=== PATIENT | male | born 1945 | race Caucasian/White ===

== ENCOUNTER 2016-10-22 06:31 | Emergency (ER) | payer MEDICARE, BC ==
--- NOTE | 2016-10-22 07:21 | EDM.PDOC ---
ED HPI GENERAL MEDICAL PROBLEM - General Chief Complaint: General Stated Complaint: MEDICAL [facility] Time Seen by Provider: 10/22/16 06:40 Source of Information: Reports: Patient, Family History Limitations: Reports: No Limitations - History of Present Illness INITIAL COMMENTS - FREE TEXT/NARRATIVE: pt arrived sob and wanting to go on hospice. He has the known diagnosis of lymphoma. he definitely does not want to be admitted to the hosp. He also has the diagnosis of bladder ca . 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 Onset: Gradual Duration: Week(s): Location: Reports: Chest, Other (pt has mmarkd swelling in both legs. ) Associated Symptoms: Reports: Cough, Shortness of Breath, Other (marked ankle swelling. ) - Related Data Allergies Allergy/AdvReac Type Severity Reaction Status Date / Time No Known Allergies Allergy Verified 11/19/15 10:13 Home Meds: Home Meds Acetaminophen [Tylenol] 650 mg PO ASDIRECTED 04/16/15 [History] Magnesium Oxide [Magnesium] 400 mg PO BID #14 tablet 11/19/15 [Rx] Dexamethasone 4 mg PO BID 10/22/16 [History] Hydrocodone/Acetaminophen [Hydrocodon-Acetaminophen 5-325] 1 each PO Q4HR PRN [History] Morphine Sulfate [Morphine Sulfate ER] 30 mg PO BID 10/22/16 [History] Past Medical History HEENT History: Reports: Impaired Vision Respiratory History: Reports: Pneumonia, Recurrent Other Genitourinary History: Bladder ca Musculoskeletal History: Reports: Fracture, Other (See Below) Other Musculoskeletal History: history left shoulder blade fracture many years ago Neurological History: Reports: Concussion Hematologic History: Reports: Blood Transfusion(s), Other (See Below) Other Hematologic History: bone marrow transplant Immunologic History: Reports: Immunosuppression, Other (See Below) Other Immunologic History: currently on chemo Oncologic (Cancer) History: Reports: Bladder, Lymphoma, Other (See Below) Other Oncologic History: Non Hodgkins lymphona x2 - Infectious Disease History Infectious Disease History: Reports: Chicken Pox, Measles, Mumps - Past Surgical History HEENT Surgical History: Reports: Oral Surgery Other Cardiovascular Surgeries/Procedures: 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 GI Surgical History: Reports: Colonoscopy Oncologic Surgical History: Reports: Bone Marrow Transplant, Lumpectomy Social & Family History - Family History Family Medical History: Noncontributory - Tobacco Use Smoking Status *Q: Current Every Day Smoker Years of Tobacco use: 50 Packs/Tins Daily: 1 Used Tobacco, but Quit: Yes Month Tobacco Last Used: 09/2015 - Caffeine Use Caffeine Use: Reports: None - Alcohol Use Days Per Week of Alcohol Use: 1 Number of Drinks Per Day: 1 Total Drinks Per Week: 1 - Recreational Drug Use Recreational Drug Use: No ED ROS GENERAL - Review of Systems Review Of Systems: See Below Constitutional: Reports: Weakness HEENT: Reports: No Symptoms Respiratory: Reports: Shortness of Breath, Cough, Other ( swelling in both ankles. ) Cardiovascular: Reports: No Symptoms Endocrine: Reports: No Symptoms GI/Abdominal: Reports: No Symptoms : Reports: No Symptoms Musculoskeletal: Reports: No Symptoms Skin: Reports: No Symptoms ED EXAM, GENERAL - Physical Exam Exam: See Below Free Text/Narrative:: pt arrived with marked increase in sob.He has ankle swelling which has increased . He does seem quite s;leepy. His 02 sats were in the 70s on arrival. Exam Limited By: Other (pt is not a good historian.) General Appearance: Alert, Anxious, Moderate Distress Ears: Normal TMs Nose: Normal Inspection Throat/Mouth: Normal Inspection Head: Atraumatic Neck: Normal Inspection Respiratory/Chest: Decreased Breath Sounds, Crackles, Wheezing, Other (pt had 02 sats in the 70s. ) Cardiovascular: Regular Rate, Rhythm GI/Abdominal: Soft, Non-Tender (Male) Exam: Penile Lesions Rectal (Males) Exam: Deferred Back Exam: Normal Inspection Extremities: Other (pt has pluse 3 pitting edema. ) Neurological: Alert, Oriented, Other ( he does fall asleep easily. ) Psychiatric: Depressed Mood Course - Vital Signs Last Recorded V/S: Last Vital Signs Temp 36.2 C 10/22/16 06:36 Pulse 92 10/22/16 06:36 Resp 20 10/22/16 06:36 BP 124/60 10/22/16 08:14 Pulse Ox 78 L 10/22/16 06:36 - Orders/Labs/Meds Orders: Active Orders 24 hr Category Date Time Status RT Aerosol Therapy [RC] ASDIRECTED Care 10/22/16 07:59 Active Chest 1V Frontal [CR] Stat Exams 10/22/16 07:16 Taken Labs: Laboratory Tests 10/22/16 10/22/16 10/22/16 Range/Units 07:25 07:25 07:25 WBC 11.8 H (4.5-11.0) K/uL RBC 3.87 L (4.30-5.90) M/uL Hgb 11.3 L (12.0-15.0) g/dL Hct 32.8 L (40.0-54.0) % MCV 85 (80-98) fL MCH 29 (27-31) pg MCHC 35 (32-36) % Plt Count 97 L (150-400) K/uL Neut % (Auto) 91 H (36-66) % Lymph % (Auto) 4 L (24-44) % Boundary % (Auto) 6 (2-6) % Eos % (Auto) 0 L (2-4) % Baso % (Auto) 0 (0-1) % Puncture Site Rt radial ABG pH 7.300 L (7.350-7.450) ABG pCO2 34.0 L (35.0-42.0) mmHg ABG pO2 67.3 L (75.0-100.0) mmHg ABG HCO3 16.2 L (22.0-26.0) mmol/L ABG Total CO2 15.2 L (23.0-27.0) mmol/L ABG O2 Saturation 88.8 L (95.0-98.0) % ABG O2 Content 13.8 L (15.0-23.0) %vol ABG Base Excess -8.9 mm/L ABG Hemoglobin 11.2 L (13.5-18.0) g/dL ABG Oxyhemoglobin 86.8 % ABG Carboxyhemoglobin 1.3 (0.0-1.6) % ABG Methemoglobin 1.0 % Mateus Test Passed O2 Delivery Device Nasal cannula Oxygen Flow Rate 2 L Sodium 136 L (140-148) mmol/L Potassium 6.5 H* (3.6-5.2) mmol/L Chloride 101 (100-108) mmol/L Carbon Dioxide 16 L (21-32) mmol/L Anion Gap 25.5 H (5.0-14.0) mmol/L BUN 154 H* D (7-18) mg/dL Creatinine 13.0 H* D (0.8-1.3) mg/dL Est Cr Clr Drug Dosing 4.94 mL/min Estimated GFR (MDRD) 4 L (>60) Glucose 102 (74-106) mg/dL Calcium 8.5 (8.5-10.1) mg/dL Total Bilirubin 0.7 D (0.2-1.0) mg/dL AST 64 H D (15-37) U/L ALT 34 D (12-78) U/L Alkaline Phosphatase 241 H D (46-116) U/L NT-Pro-B Natriuret Pep (5-125) pg/mL Total Protein 6.0 L (6.4-8.2) g/dL Albumin 2.6 L (3.4-5.0) g/dL Globulin 3.4 (2.3-3.5) g/dL Albumin/Globulin Ratio 0.8 L (1.2-2.2) Urine Color Urine Appearance Urine pH (4.5-8.0) Ur Specific Inez (1.008-1.030) Urine Protein (NEGATIVE) mg/dL Urine Glucose (UA) (NEGATIVE) mg/dL Urine Ketones (NEGATIVE) mg/dL Urine Occult Blood (NEGATIVE) Urine Nitrite (NEGAITVE) Urine Bilirubin (NEGATIVE) Urine Urobilinogen (NORMAL) mg/dL Ur Leukocyte Esterase (NEGATIVE) Urine RBC (0-5) Urine WBC (0-5) Ur Epithelial Cells Amorphous Sediment Urine Bacteria Urine Mucus 10/22/16 10/22/16 Range/Units 07:26 09:22 WBC (4.5-11.0) K/uL RBC (4.30-5.90) M/uL Hgb (12.0-15.0) g/dL Hct (40.0-54.0) % MCV (80-98) fL MCH (27-31) pg MCHC (32-36) % Plt Count (150-400) K/uL Neut % (Auto) (36-66) % Lymph % (Auto) (24-44) % Boundary % (Auto) (2-6) % Eos % (Auto) (2-4) % Baso % (Auto) (0-1) % Puncture Site ABG pH (7.350-7.450) ABG pCO2 (35.0-42.0) mmHg ABG pO2 (75.0-100.0) mmHg ABG HCO3 (22.0-26.0) mmol/L ABG Total CO2 (23.0-27.0) mmol/L ABG O2 Saturation (95.0-98.0) % ABG O2 Content (15.0-23.0) %vol ABG Base Excess mm/L ABG Hemoglobin (13.5-18.0) g/dL ABG Oxyhemoglobin % ABG Carboxyhemoglobin (0.0-1.6) % ABG Methemoglobin % Mateus Test O2 Delivery Device Oxygen Flow Rate L Sodium (140-148) mmol/L Potassium (3.6-5.2) mmol/L Chloride (100-108) mmol/L Carbon Dioxide (21-32) mmol/L Anion Gap (5.0-14.0) mmol/L BUN (7-18) mg/dL Creatinine (0.8-1.3) mg/dL Est Cr Clr Drug Dosing mL/min Estimated GFR (MDRD) (>60) Glucose (74-106) mg/dL Calcium (8.5-10.1) mg/dL Total Bilirubin (0.2-1.0) mg/dL AST (15-37) U/L ALT (12-78) U/L Alkaline Phosphatase (46-116) U/L NT-Pro-B Natriuret Pep 1080 H (5-125) pg/mL Total Protein (6.4-8.2) g/dL Albumin (3.4-5.0) g/dL Globulin (2.3-3.5) g/dL Albumin/Globulin Ratio (1.2-2.2) Urine Color Yellow Urine Appearance Cloudy Urine pH 5.0 (4.5-8.0) Ur Specific Inez 1.020 (1.008-1.030) Urine Protein Trace (NEGATIVE) mg/dL Urine Glucose (UA) Normal (NEGATIVE) mg/dL Urine Ketones Negative (NEGATIVE) mg/dL Urine Occult Blood Large (NEGATIVE) Urine Nitrite Negative (NEGAITVE) Urine Bilirubin Negative (NEGATIVE) Urine Urobilinogen Normal (NORMAL) mg/dL Ur Leukocyte Esterase Moderate (NEGATIVE) Urine RBC 20-30 H (0-5) Urine WBC 10-20 H (0-5) Ur Epithelial Cells Not seen Amorphous Sediment Not seen Urine Bacteria Not seen Urine Mucus Not seen Meds: Medications Discontinued Medications Generic Name Dose Route Start Last Admin Trade Name Nitesh PRN Reason Stop Dose Admin Albuterol 2.5 mg 10/22/16 07:59 10/22/16 08:14 Proventil Neb Soln NEB 10/22/16 08:00 2.5 mg ONETIME ONE Administration Furosemide 60 mg 10/22/16 07:59 10/22/16 08:14 Lasix IVPUSH 10/22/16 08:00 60 mg ONETIME ONE Administration - Re-Assessments/Exams Free Text/Narrative Re-Assessment/Exam: 10/22/16 08:04 pt arrived with marked sob. He had a chest xray which revealed copd and possibly some increased fluid in his chest. He had a cbc which shows a hg of 11.8. 10/22/16 08:33 pt had lab work that revealed a creatnine of 13.5 and his k is 6.5. 10/22/16 10:26 Dr Zacarias was notified of his admission to Hospice Departure - Departure Time of Disposition: 10:26 Disposition: DC/Tfer to Hospice - Home 48 Condition: Serious Clinical Impression: Renal failure, Non-Hodgkins lymphoma, Bladder cancer metastasized to bone, Anemia, Hyperkalemia - Discharge Information Instructions: Hospice Referrals: Gilbert Zacarias Sr, MD [Primary Care Provider] - Forms: ED Department Discharge Care Plan Goals: admit to Hospice - My Orders Last 24 Hours: My Active Orders 10/22/16 07:16 Chest 1V Frontal [CR] Stat 10/22/16 07:59 RT Aerosol Therapy [RC] ASDIRECTED - Assessment/Plan Last 24 Hours: My Active Orders 10/22/16 07:16 Chest 1V Frontal [CR] Stat 10/22/16 07:59 RT Aerosol Therapy [RC] ASDIRECTED
[2016-10-22] MEDS ORDERED: Furosemide 40 MG/4 ML VIAL IVPUSH ONE (07:59)
[2016-10-22] MEDS ORDERED: Albuterol 0.083% 2.5 MG/3 ML Neb Soln NEB ONE (07:59)
[2016-10-22 08:15] VITALS: BP 124/60
--- NOTE | 2016-10-24 08:53 | CR ---
Mild cardiomegaly. Interstitial thickening which may be chronic versus interstitial edema. No focal c onsolidation. Sclerotic lesion within the left humerus..
== END 2016-10-22 10:54 | disposition hospice, home (50) ==
LOC: JP.ED 06:31
DX: C85.90 Non-Hodgkin lymphoma, unspecified, unspecified site (principal); C67.9 Malignant neoplasm of bladder, unspecified; C79.51 Secondary malignant neoplasm of bone; D63.0 Anemia in neoplastic disease; N19 Unspecified kidney failure; E87.5 Hyperkalemia; F17.210 Nicotine dependence, cigarettes, uncomplicated; Z92.21 Personal history of antineoplastic chemotherapy; Z94.81 Bone marrow transplant status; Z98.890 Other specified postprocedural states
CPT/HCPCS: 36415; 36600; 71010; 80053; 81001; 82803; 83880; 85025; 96374; 99285; J1940